=== PATIENT | female | born 1970 | race Caucasian/White ===

== ENCOUNTER 2020-12-28 10:07 | Inpatient (IN) | payer OTHER, SELFPAY ==
[2020-12-28] VITALS (7 sets, daily range): BP systolic 134–172; BP diastolic 82–102; PULSE 87–145; RESP 18–19; TEMP 36.9–37.1; O2SAT 96–99; BMI 25.8
--- NOTE | 2020-12-28 11:04 | ED_ITS ---
HPI - Alcohol General: Chief Complaint: Alcohol Stated Complaint: ALCOHOL WITHDRAWALS Time Seen by Provider: 12/28/20 10:08 History of Present Illness: HPI narrative: 50-year-old female who is a history of heavy drinking. She had stopped drinking for a couple of years about 2 to 12 weeks ago she restarted drinking up to what she describes as a gallon a day. Her last drink was yesterday she has been vomiting since then she denies any hematemesis or coffee-ground emesis. She does not have any known history of cirrhosis or esophageal varices. She denied any hematochezia or melena. She is wanting to stop drinking. Additionally she states she is suicidal plan to harm herself by taking an overdose of pills. She has had seizures in the past related to attempts to stop drinking. MD complaint: alcohol dependence Last drink: Days (ago) Chronic alcohol use: Yes Previous visits for alcohol intoxication: Yes Recent trauma: No Associated symptoms: Reports depression and suicidal ideation; Deny abdominal pain, diaphoresis, hematemesis, involuntary movements, melena, nausea, seizure-like activity, syncope or vomiting Treatments prior to arrival: none Review of Systems Const: Denies: diaphoresis ENMT: Denies: throat pain, ear or mastoid pain, nasal discharge or nasal congestion Card: Denies: syncope Resp: Denies: dyspnea, productive cough or non-productive cough GI: Denies: abdominal pain, nausea, vomiting, hematemesis or melena : Denies: flank pain, difficulty voiding, dysuria, urinary frequency or urinary urgency Skin/Breast: Denies: rash or pruritus Neuro: Denies: seizure-like activity or involuntary movements Psych: Reports: depression and suicidal ideation Physical Exam Const: COMMON NORMALS: no acute distress GENERAL APPEARANCE: cooperative and comfortable ORIENTATION/CONSCIOUSNESS: Yes awake, Yes oriented to person, Yes oriented to place and Yes oriented to time HENMT: COMMON NORMALS: normocephalic, atraumatic, hearing grossly normal bilat erally, external ears normal, EAC's normal, TM's normal bilaterally, Normal nasal mucous membranes and turbinates present, moist oral mucous membranes and oropharynx normal HEAD & SCALP: normocephalic and atraumatic NOSE: Normal nasal mucous membranes and turbinates present EXTERNAL EAR: Yes external ears normal EXTERNAL AUDITORY CANAL: EAC's normal TYMPANIC MEMBRANE: TM's normal bilaterally Eye: COMMON NORMALS: Equal, round and reactive pupils present, EOMs intact bilaterally, conjunctivae normal and no scleral icterus CONJUNCTIVA: Yes conjunctivae normal PUPIL: Yes Equal, round and reactive pupils present Neck/C-Spine: COMMON NORMALS: no JVD Resp: COMMON NORMALS: normal respiratory effort, No retractions, No use of accessory muscles and clear to auscultation bilaterally AUSCULTATION: clear to auscultation bilaterally Cardio: COMMON NORMALS: no JVD, regular rate, regular rhythm and No murmurs present (Cardio) RATE: regular rate RHYTHM: regular rhythm GI: COMMON NORMALS: Soft to palpation and No hepatosplenomegaly present AUSCULTATION: Yes normoactive bowel sounds PALPATION: Yes Soft to palpation, No Tenderness to palpation present (GI), No Guarding due to palpation present (GI) and Yes No hepatosplenomegaly present Extremity: COMMON NORMALS: normal to inspection, capillary refill normal, no clubbing, cyanosis or edema, no calf tenderness and no pedal edema Neuro: SENSORIUM/ORIENTATION: Yes oriented to person, Yes oriented to place an d Yes oriented to time Skin: COMMON NORMALS: no rashes or lesions noted GENERAL SKIN EXAM: no r ashes or lesions noted Course Vital Signs: Vital signs: Vital Signs Temperature 98.8 F 12/31/20 06:00 Pulse Rate 92 12/31/20 06:00 Respiratory Rate 20 H 12/31/20 06:00 Blood Pressure 138/98 12/31/20 06:00 Pulse Oximetry 96 12/31/20 06:00 MDM - Alcohol MDM Narrative: Medical decision making narrative: Patient started on a CIWA protocol discussed with Dr. Beyer will admit for suicidal ideation with [facility] protocol. Lab Data: Labs: Lab Results 12/28/20 12/28/20 12/28/20 Range/Units 10:30 10:30 10:30 WBC 6.1 (4.0-10.0) 10^3/ uL RBC 5.05 (4.1-5.3) 10^6/u L Hgb 16.8 H (11.5-15.3) g/dL Hct 48.6 H (37.0-47.0) % MCV 96.2 (81-99) fL MCH 33.3 (28.0-34.0) pg MCHC 34.6 (30.0-36.0) g/dL RDW 14.8 (12.1-15.1) % Plt Count 169 (130-400) 10^3/c mm MPV 11.1 H (7.4-10.4) fL Neut % (Auto) 64.0 % Lymph % (Auto) 30.4 % [place] % (Auto) 4.1 % Eos % (Auto) 0.2 % Baso % (Auto) 1.1 % Neut # (Auto) 3.90 (1.8-7.7) 10^3/u L Lymph # (Auto) 1.9 (0.8-4.8) 10^3/u L [place] # (Auto) 0.3 (0.2-0.9) 10^3/u L Eos # (Auto) 0.0 (0.0-0.8) 10^3/u L Baso # (Auto) 0.1 (0.0-0.1) 10^3/u L Nucleated RBC % (a uto) 0 % Nucleated RBCs # 0.0 /100WBC Sodium 139 (136-145) mmol/L Potassium 3.6 (3.5-5.1) mmol/L Chloride 94 L (98-107) mmol/L Carbon Dioxide 22 (22-29) mmol/L Anion Gap 26.6 H (5-19) BUN 9 (6-20) mg/dL Creatinine 0.7 (0.5-0.9) mg/dL GFR Calculation 88.9 L (90-130) mL/min Glucose 110 (65-115) mg/dL Calculated Osmolal ity 287 (285-295) mOsm/k g Calcium 8.7 (8.5-10.5) mg/dL Total Bilirubin 1.2 (0.15-1.2) mg/dL AST 88 H (0-32) U/L ALT 43 H (0-33) U/L Alkaline Phosphata se 92 (35-105) IU/L Total Protein 8.2 (6.6-8.7) g/dL Albumin 4.8 (3.5-5.2) g/dL Globulin 3.4 (1.3-4.6) g/dL Salicylates < 0.3 L (3-10) mg/dL Acetaminophen < 5.0 L (10-30) ug/mL Ethyl Alcohol 263 H (0-10) mg/dL Discharge Plan Discharge Patient Disposition: Admitted As Inpatient Admit Provider: Bob Beyer Clinical Impression: Suicidal ideation, Alcohol dependence with withdrawal, Depressive disorder Condition: Stable Coding Level of Care Code ED Airplane Refueler for Davina Grace
[2020-12-28 11:18] LABS: Basophils # 0.1 10^3/uL (0.0-0.1); Basophils % 1.1 %; Eosinophils % 0.2 %; Hematocrit 48.6 % (37.0-47.0); Hemoglobin 16.8 g/dL (11.5-15.3); Lymphocytes # 1.9 10^3/uL (0.8-4.8); Lymphocytes % 30.4 %; Mean Corpuscular HGB Conc 34.6 g/dL (30.0-36.0); Mean Corpuscular Hemoglobin 33.3 pg (28.0-34.0); Mean Corpuscular Volume 96.2 fL (81-99); Mean Platelet Volume 11.1 fL (7.4-10.4); Monocytes # 0.3 10^3/uL (0.2-0.9); Monocytes % 4.1 %; Nucleated Red Blood Cells % 0 %; Platelet Count 169 10^3/cmm (130-400); Red Blood Count 5.05 10^6/uL (4.1-5.3); Red Cell Distribution Width 14.8 % (12.1-15.1); White Blood Count 6.1 10^3/uL (4.0-10.0)
[2020-12-28] MEDS: ondansetron 2 mg/ML SDV 2 mL 4 MG IVP (11:22)
[2020-12-28] MEDS: multivitamin therapeutic Tablet 1 TAB PO (11:23)
[2020-12-28] MEDS: LORazepam 2 mg/mL INJ 1 mL IM ×3 (11:23→20:48)
[2020-12-28] MEDS: sodium chloride 0.9% 1,000 ML 999 ML IV (11:23)
[2020-12-28 11:30] LABS: Alanine Aminotransferase 43 U/L (0-33); Albumin Level 4.8 g/dL (3.5-5.2); Alkaline Phosphatase 92 IU/L (35-105); Anion Gap 26.6 (5-19); Aspartate Amino Transferase 88 U/L (0-32); Blood Urea Nitrogen 9 mg/dL (6-20); Calcium 8.7 mg/dL (8.5-10.5); Carbon Dioxide 22 mmol/L (22-29); Chloride 94 mmol/L (98-107); Globulin 3.4 g/dL (1.3-4.6); Glomerular Filtration Rate 88.9 mL/min (90-130); Glucose 110 mg/dL (65-115); Osmolality Calculated 287 mOsm/kg (285-295); Potassium 3.6 mmol/L (3.5-5.1); Sodium 139 mmol/L (136-145); Total Bilirubin 1.2 mg/dL (0.15-1.2); Total Protein 8.2 g/dL (6.6-8.7)
[2020-12-28 11:32] LABS: Acetaminophen < 5.0 ug/mL (10-30); Salicylate < 0.3 mg/dL (3-10)
[2020-12-28] MEDS: thiamine 100 mg Tablet PO (11:32)
--- NOTE | 2020-12-28 11:33 | PC.NURSE ---
Cooperative , meds given. Sitter at doorway
[2020-12-28] MEDS: folic acid 1 mg Tablet PO (11:49)
[2020-12-28] MEDS: ondansetron 4 MG Tablet PO (16:59)
[2020-12-28] MEDS: acetaminophen 325 mg Tablet 650 MG PO (16:59)
[2020-12-28] MEDS: LORazepam 2 mg Tablet PO (17:14)
--- NOTE | 2020-12-28 19:37 | PC.NURSE ---
The patient came to the nurse's station complaining of nausea and vomiting. Having dry heaves as she spoke. Very tremulous. PP 172/102. Pulse 145. Afebrile. CIWA 16. Will give Ativan 2 mg IM.
[2020-12-28 19:49] LABS: Alcohol Level 263 mg/dL (0-10)
[2020-12-28] MEDS: ondansetron 2 mg/ML SDV 2 mL 4 MG IM (20:41)
--- NOTE | 2020-12-28 20:46 | PC.NURSE ---
Reassessed CIWA. Patient still having nausea and vomiting and dry heaves. Zofran 4 mg IM given. CIWA=16. BP 165/96. Pulse 138. Afebrile. Ativan 2 mg IM given.
--- NOTE | 2020-12-28 21:22 | PC.NURSE ---
The patient appears to be sleeping at this time.
[2020-12-28] MEDS: trazodone 50 mg Tablet PO (21:51)
--- NOTE | 2020-12-28 21:52 | PC.NURSE ---
pt came to desk requesting trazodone for sleep. Trazodone 50mg po given.
[2020-12-29] MEDS: LORazepam 2 mg Tablet PO ×2 (04:08→20:13)
--- NOTE | 2020-12-29 04:12 | PC.NURSE ---
pt given Ativan 2mg po for CIWA score of 10. pt states she is not as nauseated as she had been earlier in the night.
[2020-12-29 06:00] VITALS: BP 121/80; PULSE 143; RESP 18; TEMP 37; O2SAT 94
[2020-12-29] MEDS: folic acid 1 mg Tablet PO (08:08)
[2020-12-29] MEDS: thiamine 100 mg Tablet PO (08:08)
[2020-12-29] MEDS: multivitamin therapeutic Tablet 1 TAB PO (08:08)
--- NOTE | 2020-12-29 10:56 | PM.NHP ---
Providers/Chief Complaint Admitting Physician: Bob Beyer DO Chief Complaint: ALCOHOL WITHDRAWALS HPI NPU History of Present Illness Gifty Patterson is a 50 year old female with a unclear past psychiatric history and longstanding history of alcohol dependence presented to the emergency department with alcohol withdrawal symptoms after reportedly increasing her alcohol take up to 1/2 gallon of vodka daily; patient states that she had tried to stop by moving out of the house that she shared with her boyfriend to live with someone who did not drink but was having episodes of emesis whenever she would drink alcohol to try and calm her nerves. Patient also reports that she was having increasing severity of depressive symptoms related to her alcohol use but also reports an unclear past history of depressive episodes with past psychiatric admissions at this facility over the past 15 years related to alcohol and depression. Patient states that she was recently having suicidal thoughts but denied any active intent or plan but reports having a past history of suicide attempt several years ago by overdose attempt but did not seek admission. Patient continues to report depressive symptoms but denies any suicidal ideation or thoughts about self-harm. Patient reports having withdrawal symptoms to include stomach cramping, muscle cramping, diaphoresis, difficulty sleeping and reports some visual hallucinations at night Review of Systems General: Reports: 10 or more systems reviewed and unremarkable except in HPI and below Meds NPU Home Medications Medication Instructions Recorded Confirmed Last Taken Type 1 tab PO DAILY 12/28/20 12/28/20 12/27/20 History Allergies Allergy/AdvReac Type Severity Reaction Status Date / Time morphine Allergy ALGY-Hives Verified 12/28/20 10:16 [facility] NPU Other Psychiatric History: Other Psychiatric History: Reports for psychiatric admission around 2004 with multiple subsequent hospitalizations related to alcohol and depression, states that she has not seen any outpatient mental health care for a few years Per above, reports past history of suicide attempt by overdose several years ago Mental Status Exam MSE Comments: Tired appearing, disheveled, wearing hospital scrubs, overweight, calm, cooperative, slow but steady gait, good eye contact Psychomotor activity is decreased, no agitation Speech is somewhat slow, fair articulation, spontaneous, not pressured I feel exhausted, constricted affect, not labile Alert and oriented to person, place, time, situation Memory and concentration appear to be intact per interview Intellectual functioning appears to be average based on vocabulary, interview Thought process, delayed but linear, no flight of ideas Thought content, no delusions, does not appear to be attending to any internal stimuli, no suicidal or homicidal ideation Insight and judgment appear to be intact Vitals/I&O/Wt Last Vital Signs Temp 98.6 F 12/29/20 06:00 Pulse 143 H 12/29/20 06:00 Resp 18 12/29/20 06:00 BP 121/80 12/29/20 06:00 Pulse Ox 94 12/29/20 06:00 12/28/20 12/29/20 12/29/20 22:59 06:59 14:59 Intake Total 1000 / 1000 Balance 1000 / 1000 Weight last 48 hrs Weight 90.718 kg Weight 77.111 kg Data NPU : 12/28/20 10:30 12/28/20 10:30 A&P Assessment and plan (1) Alcohol dependence with withdrawal: Status: Acute (2) Depressive disorder: Status: Acute (3) Suicidal ideation: Status: Acute Additional A&P Information Patient with longstanding history of alcohol dependence and unclear past psychiatric history with intermittent episodes of depression presents with alcohol withdrawal and suicidal ideation. VOLUNTARY ADMIT to inpatient psychiatry CONTINUE CIWA protocol Continue to monitor for withdrawal symptoms and will reevaluate for starting antidepressant after clearing acute withdrawal Coordinate with psychiatric social worker supervisor for post discharge care to include substance counseling and medication management Involuntary Hold Information 96 Hour Hold: 96 Hour Involuntary Admission: No Attestations NPU Medical Necessity Statement*: Require psychiatric hospitalization for medically managed withdrawal, observation for ongoing suicidal ideation or behaviors, coordination for safe discharge Anticipate hospital stay to exceed 2 midnights Time Spent in Patient Care: Greater than 35 minutes (>than 50% of time spent in counselling and/or direct pt care on unit). Coding Level of Care Code Acute [employer] Supervisor for Davina Grace Diagnoses Alcohol dependence with withdrawal F10.239 Depressive disorder F32.9 Suicidal ideation R45.851
[2020-12-29 13:39] VITALS: BP 136/79; PULSE 106; RESP 19; TEMP 37.2; O2SAT 94
[2020-12-29] MEDS: nicotine 2 mg Gum BUCCAL ×3 (14:16→19:19)
[2020-12-29] MEDS: ondansetron 4 MG Tablet PO (14:34)
[2020-12-29 19:53] VITALS: BP 139/96; PULSE 121; RESP 17; TEMP 36.9; O2SAT 94
[2020-12-29] MEDS: hyDROXYzine 25 mg Capsule 50 MG PO (19:54)
--- NOTE | 2020-12-29 19:55 | PC.NURSE ---
pt to desk complaining of anxiety and itching, Vistaril 50mg po given.
--- NOTE | 2020-12-29 20:07 | PC.NURSE ---
The patient had nausea and vomiting while we were talking. She has visible tremor. Complaining of prickly sensations in her fingers and around her mouth. Moderate anxiety. T 98, P 121, R 17, BP 139/96. CIWA=16. Will give Ativan 2 mg PO.
[2020-12-29] MEDS: trazodone 50 mg Tablet PO (21:27)
--- NOTE | 2020-12-29 21:30 | PC.NURSE ---
pt requested sleep med. trazodone 50mg given.
--- NOTE | 2020-12-29 22:00 | PC.NURSE ---
The patient reports relief of nausea, anxiety, tactile symptoms.
--- NOTE | 2020-12-29 22:10 | PC.NURSE ---
pt still awake, states getting sleepy.
[2020-12-30 06:00] VITALS: BP 113/77; PULSE 82; RESP 16; TEMP 36.3; O2SAT 93
[2020-12-30] MEDS: multivitamin therapeutic Tablet 1 TAB PO (07:41)
[2020-12-30] MEDS: nicotine 2 mg Gum BUCCAL ×5 (07:41→20:56)
[2020-12-30] MEDS: thiamine 100 mg Tablet PO (07:42)
[2020-12-30] MEDS: folic acid 1 mg Tablet PO (07:42)
[2020-12-30] MEDS: LORazepam 2 mg Tablet PO (11:55)
--- NOTE | 2020-12-30 11:59 | PC.NURSE ---
CIWA SCORE 10--ATIVAN 2 MG GIVEN PO PER PROTOCOL
[2020-12-30 13:56] VITALS: BP 106/69; PULSE 104; RESP 18; TEMP 36.7; O2SAT 96
--- NOTE | 2020-12-30 14:18 | PM.NPN ---
Subjective NPU Subjective: Interval history: Patient reports significant improvement in her withdrawal symptoms, denies any interval emesis, states that she has been able to hold down food and that she slept better last evening Reports intermittent depressive symptoms with regards to her situation but denies any sustained mood symptoms, denies any interval suicidal ideation or thoughts about self-harm Patient expressed interest in taking naltrexone to reduce cravings for alcohol Mental Status Exam MSE Comments: Lying in bed, calm, cooperative, interactive, appropriately groomed and dressed in hospital scrubs, good eye contact Psychomotor activity is neither increased nor decreased, no agitation Speech is normal rate and volume, spontaneous, not pressured I feel much better, full range, not labile Alert and oriented to person, place, time, situation Memory and concentration appear to be intact per interview Thought process, linear, no flight of ideas, no looseness of associations Thought content, no delusions, no hallucinations, no suicidal or homicidal ideation Insight and judgment appear to be intact Vitals/I&O/Wt Last Vital Signs Temp 98.0 F 12/30/20 13:56 Pulse 104 H 12/30/20 13:56 Resp 18 12/30/20 13:56 BP 106/69 12/30/20 13:56 Pulse Ox 96 12/30/20 13:56 Weight last 48 hrs Weight 90.718 kg Data NPU : 12/28/20 10:30 12/28/20 10:30 A&P Assessment and plan (1) Suicidal ideation: Status: Acute (2) Alcohol dependence with withdrawal: Status: Acute Qualifiers: Complication of substance-induced condition: uncomplicated Qualified Code(s): F10.230 - Alcohol dependence with withdrawal, uncomplicated (3) Depressive disorder: Status: Acute Additional A&P Information Patient reports significant improvement alcohol withdrawal symptoms, continues to report intermittent depressive symptoms with no interval suicidal ideation, expresses interest in starting medication to reduce cravings START naltrexone 50 mg daily targeting alcohol cravings CONTINUE [facility] protocol Involuntary Hold Information 96 Hour Hold: 96 Hour Involuntary Admission: No Attestations NPU Medical Necessity Statement*: Continues require psychiatric hospitalization for medically managed withdrawal from alcohol as well as observation for return of any suicidal ideation or behaviors and coordination for safe discharge Coding Level of Care Code Acute Reception Interviewer for [facility] Diagnoses Suicidal ideation R45.851 Alcohol dependence with withdrawal F10.230 Complication of substance-induced condition: uncomplicated Depressive disorder F32.9
[2020-12-30] MEDS: naltrexone hcl 50 mg Tablet PO (14:51)
[2020-12-30] MEDS: acetaminophen 325 mg Tablet 650 MG PO (18:42)
[2020-12-30 19:54] VITALS: BP 125/83; PULSE 125; RESP 18; TEMP 36.7; O2SAT 97
[2020-12-30] MEDS: OLANZapine 5 mg ODT PO (20:58)
--- NOTE | 2020-12-30 22:12 | PC.NURSE ---
pt in room awake, resting quietly
[2020-12-30] MEDS: trazodone 50 mg Tablet PO (22:33)
[2020-12-30] MEDS: hyDROXYzine 25 mg Capsule 50 MG PO (23:34)
--- NOTE | 2020-12-30 23:37 | PC.NURSE ---
PT TO DESK COMPLAINING OF STILL NOT ABLE TO STOP MY THOUGHTS . VISTARIL 50 MG PO GIVEN.
[2020-12-31 06:00] VITALS: BP 138/98; PULSE 92; RESP 20; TEMP 37.1; O2SAT 96
[2020-12-31] MEDS: nicotine 2 mg Gum BUCCAL ×2 (06:44→09:31)
[2020-12-31] MEDS: naltrexone hcl 50 mg Tablet PO (08:14)
[2020-12-31] MEDS: folic acid 1 mg Tablet PO (08:14)
[2020-12-31] MEDS: thiamine 100 mg Tablet PO (08:14)
[2020-12-31] MEDS: multivitamin therapeutic Tablet 1 TAB PO (08:14)
--- NOTE | 2020-12-31 09:36 | P.DS_ITS ---
Diagnoses at Discharge Discharge Diagnosis (1) Suicidal ideation: Status: Acute (2) Alcohol dependence with withdrawal: Status: Acute (3) Depressive disorder: Status: Acute Reason for Visit Reason for Visit: ALCOHOL WITHDRAWALS Hospital Course Hospital Course 50 year old female with a unclear past psychiatric history and longstanding history of alcohol dependence presented to the emergency department with alcohol withdrawal symptoms after reportedly increasing her alcohol take up to 1/2 gallon of vodka daily; patient states that she had tried to stop by moving out of the house that she shared with her boyfriend to live with someone who did not drink but was having episodes of emesis whenever she would drink alcohol to try and calm her nerves. She continued to report significant withdrawal symptoms and had been placed on CIWA protocol. Patient continued to have intermittent episodes of emesis for the first couple days with significant improvement in ability to tolerate fluids and food and was no longer reporting stomach spasms, tremors or nausea. Patient reported significant improvement of her depressive symptoms and denied any suicidal ideation which she states was tied to her frustration with her inability to quit drinking and her relationship with her alcoholic boyfriend. Patient expressed an interest in starting naltrexone to reduce cravings for alcohol which she tolerated well with no reports of any medication side effects. Patient was not suicidal and did not appear to pose an imminent threat of harm to self or others. Low to moderate risk of harm to self given no current suicidal ideation as well as desire to abstain from use of alcohol and seek treatment although her risk may be elevated if she continues to use alcohol or any substances leading to unexpected, impulsive behavior. Risk mitigation included psychiatric hospitalization for medically managed withdrawal, medication stabilization, coordination for safe discharge as well as recommendation to abstain from the use of alcohol and substances as well as the need for compliance with her medication, medication management and substance counseling/treatment in order to further mitigate her risk of harm to self and others. Involuntary Hold Information 96 Hour Hold: 96 Hour Involuntary Admission: No Mental Status Exam MSE Comments: Sitting up on her bed, polite, interactive, appropriately groomed and dressed in hospital scrubs, good eye contact Psychomotor activity is neither increased nor decreased, no agitation Speech is normal rate and volume, spontaneous, not pressured I feel good, full range, not labile Alert and oriented to person, place, time, situation Memory and concentration appear to be intact per interview Thought process, linear, no flight of ideas, no looseness of associations Thought content, no delusions, no hallucinations, no suicidal or homicidal ideation Insight and judgment appear to be intact Discharge Data Data Completed and Pending: Pending at discharge Category Date Time Status Urinalysis Stat Lab 12/28/20 11:58 Ordered Vitals: Last Vital Signs Temp 98.8 F 12/31/20 06:00 Pulse 92 12/31/20 06:00 Resp 20 H 12/31/20 06:00 BP 138/98 12/31/20 06:00 Pulse Ox 96 12/31/20 06:00 Discharge Plan Discharge Patient Disposition: Home Condition: Stable Prescriptions: New thiamine mononitrate (vit B1) [Vitamin B-1 (mononitrate)] 100 mg Tablet 100 mg PO DAILY Qty: 30 RF: 0 naltrexone 50 mg Tablet 50 mg PO DAILY Qty: 30 RF: 0 Continued 1 tab PO DAILY RF: 0 Discharge Orders: Discharge Order (Routine); Ordered 12/31/20 Ordered By: Bob Beyer Discharge Diet: Regular Discharge Activity: Resume usual activity Patient Instructions: Opioid Safety Discharge Attestations NPU Time Spent in Discharge Care*: greater than 30 min Status at Discharge: Cognitive status at discharge: cognitively intact , Behavioral status at discharge: cooperative , Functional status at discharge: independent ambulation Overall status at discharge: patient is back to baseline Coding Level of Care Code Acute Lead Retail Sales Associate for Davina Grace Diagnoses Suicidal ideation R45.851 Alcohol dependence with withdrawal F10.239 Depressive disorder F32.9
[2020-12-31 10:02] VITALS: BP 138/98; PULSE 92; RESP 20; TEMP 37.1; O2SAT 96
== END 2020-12-31 10:21 | disposition home or self-care (01) | DRG 897 ==
LOC: ER 12:13 → NP 12:19
PROVIDERS: Admitting Provider Psychiatry & Neurology Psychiatry; Emergency Provider Family Medicine; Visit Provider Psychiatry & Neurology Psychiatry
DX: F10.239 Alcohol dependence with withdrawal, unspecified (principal); R45.851 Suicidal ideations; F32.9 Major depressive disorder, single episode, unspecified
CPT/HCPCS: 80053; 80307; 85025; 96361; 96372; 96374; 99285; J2060; J2405; J3411; J7030; Q0162

== ENCOUNTER 2021-10-12 16:11 | Inpatient (IN) | payer OTHER, SELFPAY ==
[2021-10-12 16:26] VITALS: BP 176/83; PULSE 76; RESP 19; TEMP 37.2; O2SAT 93; BMI 33.3
--- NOTE | 2021-10-12 16:45 | W.ED.PSYCHS ---
Documented by User: NESSA Pedersen 10/12/21 16:47 HPI - Psych General: Chief Complaint: Psychiatric Symptoms Stated Complaint: psych, SI Time Seen by Provider: 10/12/21 16:39 History of Present Illness: HPI Narrative: Patient presents here today with thoughts of suicide. Patient says he does have a difficult time since her boyfriend killed herself in her living room in January. Says she had a lot of financial difficulties having remodeled the house also. Also mother is moved in and that is created some problems. Patient has drank heavily over the years. Was sober for 2 years and started drinking again with her boyfriend and then drinking worse once he committed suicide. Patient denies illicit drug use yet that her boyfriend did use methamphetamines heavily. Patient says she is reach out for help she feels very depressed does not want to go on living and she has a plan to take pills to end her life. She has drank Southern comfort today and 12 pack of beer complaint: suicidal ideation and feels depressed Onset (ago): month(s) Duration: constant and getting worse History of same: Yes Relieving factors: none Context: recent alcohol abuse Associated psychiatric symptoms: depression and suicidal ideation Associated symptoms: Reports no associated symptoms and depression Treatments prior to arrival: none If self harm: admits thoughts of self harm and has plan Review of Systems Const: Denies: fever(s), chills or body aches Eyes: Denies: change in vision or blurry vision ENMT: Denies: throat pain or nasal congestion Card: Denies: chest pain or dyspnea on exertion Resp: Denies: dyspnea, productive cough or non-productive cough GI: Denies: abdominal pain, nausea or vomiting Musc: Denies: extremity pain Skin/Breast: Denies: rash Neuro: Denies: headache(s) Psych: Reports: depression, sleeping less, hopelessness and loss of interest; Denies: anxiety Candelario/Lymph: Denies: easy bruising Physical Exam Const: COMMON NORMALS: no acute distress, average body habitus and patient oriented x3 HENMT: COMMON NORMALS: normocephalic HEAD & SCALP: normal to inspection and normocephalic FACE & SINUS: normal facial exam Eye: COMMON NORMALS: conjunctivae normal GENERAL EYE: appearance normal, both eyes and all related structures CONJUNCTIVA: Yes conjunctivae normal Neck/C-Spine: COMMON NORMALS: no JVD Chest: COMMONS NORMALS: normal inspection of the chest Resp: COMMON NORMALS: normal respiratory effort and clear to auscultation bilaterally AUSCULTATION: clear to auscultation bilaterally Cardio: COMMON NORMALS: no JVD, regular rate and regular rhythm RATE: regular rate RHYTHM: regular rhythm GI: COMMON NORMALS: Normal to inspection, nondistended, normoactive bowel sounds present Extremity: COMMON NORMALS: normal to inspection and full ROM Neuro: COMMON NORMALS: patient oriented x3 Psych: COMMON NORMALS: mental status grossly normal, Normal thought process present and speech normal APPEARANCE: Yes grossly normal ATTITUDE: Yes calm and Yes engaged ACTIVITY/MOTOR BEHAVIOR: Yes appropriate eye contact SPEECH: Yes normal speech MOOD & AFFECT: Yes depressed mood THOUGHT PROCESS: Normal thought process present THOUGHT CONTENT: Yes Normal thought content present ATTENTION/CONCENTRATION: Yes attention grossly intact MEMORY/COGNITION: Yes memory grossly intact JUDGEMENT: Good judgement present (Psych) Course Vital Signs: Vital signs: Vital Signs Temperature 97.9 F 10/12/21 20:35 Pulse Rate 79 10/12/21 20:35 Respiratory Rate 17 10/12/21 20:35 Blood Pressure 120/88 10/12/21 20:35 Pulse Oximetry 94 10/12/21 20:35 MDM - Psych Lab Data: Labs: Lab Results 10/12/21 10/12/21 10/12/21 17:02 17:02 17:09 WBC 6.6 10^3/uL 10^3/ uL (4.0-10.0) RBC 4.28 10^6/uL 10^6 /uL (4.1-5.3) Hgb 15.1 g/dL g/dL (11.5-15.3) Hct 43.0 % % (37.0-47.0) MCV 100.5 fl H fl (81-99) MCH 35.3 pg H pg (28.0-34.0) MCHC 35.1 g/dL g/dL (30.0-36.0) RDW 13.5 % % (12.1-15.1) Plt Count 91 10^3/cmm L 10^ 3/cmm (130-400) MPV 11.7 fL H fL (7.4-10.4) Neut % (Auto) 51.4 % % Lymph % (Auto) 34.4 % % [place] % (Auto) 10.9 % % Eos % (Auto) 2.0 % % Baso % (Auto) 1.1 % % Neut # (Auto) 3.41 10^3/uL 10^3 /uL (1.8-7.7) Lymph # (Auto) 2.3 10^3/uL 10^3/ uL (0.8-4.8) [place] # (Auto) 0.7 10^3/uL 10^3/ uL (0.2-0.9) Eos # (Auto) 0.1 10^3/uL 10^3/ uL (0.0-0.8) Baso # (Auto) 0.1 10^3/uL 10^3/ uL (0.0-0.1) Nucleated RBC % (a uto) 0 % % Nucleated RBCs # 0.0 /100WBC /100W BC Sodium 134 mmol/L L mmol /L (136-145) Potassium 3.7 mmol/L mmol/L (3.5-5.1) Chloride 97 mmol/L L mmol/ L (98-107) Carbon Dioxide 22 mmol/L mmol/L (22-29) Anion Gap 18.7 (5-19) BUN 7 mg/dL mg/dL (6-20) Creatinine 0.5 mg/dL mg/dL (0.5-0.9) GFR Calculation 130.6 mL/min H mL /min (90-130) Glucose 99 mg/dL mg/dL (65-115) Calculated Osmolal ity 276 mOsm/kg L mOs m/kg (285-295) Calcium 8.3 mg/dL L mg/dL (8.5-10.5) Total Bilirubin 0.7 mg/dL mg/dL (0.15-1.2) AST 106 U/L H U/L (0-32) ALT 38 U/L H U/L (0-33) Alkaline Phosphata se 138 IU/L H IU/L (35-105) Total Protein 6.8 g/dL g/dL (6.6-8.7) Albumin 3.9 g/dL g/dL (3.5-5.2) Globulin 2.9 g/dL g/dL (1.3-4.6) Urine Color Yellow (Yellow) Urine Appearance Clear (CLEAR) Urine pH 5 (5-7) Ur Specific Gravit y 1.005 (1.005-1.030) Urine Protein Neg (Negative) Urine Glucose (UA) Norm (Normal) Urine Ketones Negative (Negative) Urine Blood Neg (Negative) Urine Nitrate Negative (Negative) Urine Bilirubin Neg (Negative) Urine Urobilinogen 1 mg/dL H mg/dL (Negative) Ur Leukocyte Tasha ase Negative (Negative) Salicylates < 0.3 mg/dL L mg/ dL (3-10) Urine Opiates Scre en Acetaminophen < 5.0 ug/mL L ug/ mL (10-30) Ur Barbiturates Sc reen Ur Phencyclidine S crn Ur Amphetamines Sc reen U Benzodiazepines Scrn Urine Cocaine Scre en U Marijuana (THC) Screen Ethyl Alcohol 230 mg/dL H mg/dL (0-10) 10/12/21 17:09 WBC RBC Hgb Hct MCV MCH MCHC RDW Plt Count MPV Neut % (Auto) Lymph % (Auto) [place] % (Auto) Eos % (Auto) Baso % (Auto) Neut # (Auto) Lymph # (Auto) [place] # (Auto) Eos # (Auto) Baso # (Auto) Nucleated RBC % (a uto) Nucleated RBCs # Sodium Potassium Chloride Carbon Dioxide Anion Gap BUN Creatinine GFR Calculation Glucose Calculated Osmolal ity Calcium Total Bilirubin AST ALT Alkaline Phosphata se Total Protein Albumin Globulin Urine Color Urine Appearance Urine pH Ur Specific Gravit y Urine Protein Urine Glucose (UA) Urine Ketones Urine Blood Urine Nitrate Urine Bilirubin Urine Urobilinogen Ur Leukocyte Tasha ase Salicylates Urine Opiates Scre en Negative ng/mL ng /mL (Negative) Acetaminophen Ur Barbiturates Sc reen Negative ng/mL ng /mL (Negative) Ur Phencyclidine S crn Negative ng/mL ng /mL (Negative) Ur Amphetamines Sc reen Negative ng/mL ng /mL (Negative) U Benzodiazepines Scrn Positive ng/mL H ng/mL (Negative) Urine Cocaine Scre en Negative ng/mL ng /mL (Negative) U Marijuana (THC) Screen Negative ng/mL ng /mL (Negative) Ethyl Alcohol Discharge Plan Discharge Patient Disposition: Admitted As Inpatient Admit Provider: Judd Underwood Clinical Impression: Suicidal ideation Condition: Stable Sign Out Sign Out Data: Patient Sign Out occurred on 10/12/21 at 17:04. Patient's care was discussed, and care was transferred from to TOMI Alvarez. Coding Level of Care Code ED Post Form Remover for Chg Fwd Exam Comprehensive Documented by User: TOMI Alvarez 10/13/21 00:02 HPI - Psych General: Chief Complaint: Psychiatric Symptoms Stated Complaint: psych, SI Time Seen by Provider: 10/12/21 16:39 Course Consultations: Consultation #1: I contacted Dr. Witt the television cable installer psych DrQian And told him about patient case. He agreed to have patient admitted into the NPU. Time: 18:50 Vital Signs: Vital signs: Vital Signs Temperature 97.9 F 10/12/21 20:35 Pulse Rate 79 10/12/21 20:35 Respiratory Rate 17 10/12/21 20:35 Blood Pressure 120/88 10/12/21 20:35 Pulse Oximetry 94 10/12/21 20:35 MDM - Psych MDM Narrative: Medical decision making narrative: Patient is a 51-year-old female comes to the ED with SI. Patient also admits to alcohol abuse and has been drinking today as well. Patient states she has a plan to overdose on pills. Patient appears in no acute distress or pain and her vitals are stable. Prescreening labs performed and urine drug screen was positive for benzodiazepine and alcohol level 230. I contacted Dr. Witt and told about patient case. He agreed to have patient admitted to the NPU. Dr. Julio placed the admitting orders. Lab Data: Attestation: I reviewed the patient's lab results. Labs: Lab Results 10/12/21 10/12/21 10/12/21 17:02 17:02 17:09 WBC 6.6 10^3/uL 10^3/ uL (4.0-10.0) RBC 4.28 10^6/uL 10^6 /uL (4.1-5.3) Hgb 15.1 g/dL g/dL (11.5-15.3) Hct 43.0 % % (37.0-47.0) MCV 100.5 fl H fl (81-99) MCH 35.3 pg H pg (28.0-34.0) MCHC 35.1 g/dL g/dL (30.0-36.0) RDW 13.5 % % (12.1-15.1) Plt Count 91 10^3/cmm L 10^ 3/cmm (130-400) MPV 11.7 fL H fL (7.4-10.4) Neut % (Auto) 51.4 % % Lymph % (Auto) 34.4 % % [place] % (Auto) 10.9 % % Eos % (Auto) 2.0 % % Baso % (Auto) 1.1 % % Neut # (Auto) 3.41 10^3/uL 10^3 /uL (1.8-7.7) Lymph # (Auto) 2.3 10^3/uL 10^3/ uL (0.8-4.8) [place] # (Auto) 0.7 10^3/uL 10^3/ uL (0.2-0.9) Eos # (Auto) 0.1 10^3/uL 10^3/ uL (0.0-0.8) Baso # (Auto) 0.1 10^3/uL 10^3/ uL (0.0-0.1) Nucleated RBC % (a uto) 0 % % Nucleated RBCs # 0.0 /100WBC /100W BC Sodium 134 mmol/L L mmol /L (136-145) Potassium 3.7 mmol/L mmol/L (3.5-5.1) Chloride 97 mmol/L L mmol/ L (98-107) Carbon Dioxide 22 mmol/L mmol/L (22-29) Anion Gap 18.7 (5-19) BUN 7 mg/dL mg/dL (6-20) Creatinine 0.5 mg/dL mg/dL (0.5-0.9) GFR Calculation 130.6 mL/min H mL /min (90-130) Glucose 99 mg/dL mg/dL (65-115) Calculated Osmolal ity 276 mOsm/kg L mOs m/kg (285-295) Calcium 8.3 mg/dL L mg/dL (8.5-10.5) Total Bilirubin 0.7 mg/dL mg/dL (0.15-1.2) AST 106 U/L H U/L (0-32) ALT 38 U/L H U/L (0-33) Alkaline Phosphata se 138 IU/L H IU/L (35-105) Total Protein 6.8 g/dL g/dL (6.6-8.7) Albumin 3.9 g/dL g/dL (3.5-5.2) Globulin 2.9 g/dL g/dL (1.3-4.6) Urine Color Yellow (Yellow) Urine Appearance Clear (CLEAR) Urine pH 5 (5-7) Ur Specific Gravit y 1.005 (1.005-1.030) Urine Protein Neg (Negative) Urine Glucose (UA) Norm (Normal) Urine Ketones Negative (Negative) Urine Blood Neg (Negative) Urine Nitrate Negative (Negative) Urine Bilirubin Neg (Negative) Urine Urobilinogen 1 mg/dL H mg/dL (Negative) Ur Leukocyte Tasha ase Negative (Negative) Salicylates < 0.3 mg/dL L mg/ dL (3-10) Urine Opiates Scre en Acetaminophen < 5.0 ug/mL L ug/ mL (10-30) Ur Barbiturates Sc reen Ur Phencyclidine S crn Ur Amphetamines Sc reen U Benzodiazepines Scrn Urine Cocaine Scre en U Marijuana (THC) Screen Ethyl Alcohol 230 mg/dL H mg/dL (0-10) 10/12/21 17:09 WBC RBC Hgb Hct MCV MCH MCHC RDW Plt Count MPV Neut % (Auto) Lymph % (Auto) [place] % (Auto) Eos % (Auto) Baso % (Auto) Neut # (Auto) Lymph # (Auto) [place] # (Auto) Eos # (Auto) Baso # (Auto) Nucleated RBC % (a uto) Nucleated RBCs # Sodium Potassium Chloride Carbon Dioxide Anion Gap BUN Creatinine GFR Calculation Glucose Calculated Osmolal ity Calcium Total Bilirubin AST ALT Alkaline Phosphata se Total Protein Albumin Globulin Urine Color Urine Appearance Urine pH Ur Specific Gravit y Urine Protein Urine Glucose (UA) Urine Ketones Urine Blood Urine Nitrate Urine Bilirubin Urine Urobilinogen Ur Leukocyte Tasha ase Salicylates Urine Opiates Scre en Negative ng/mL ng /mL (Negative) Acetaminophen Ur Barbiturates Sc reen Negative ng/mL ng /mL (Negative) Ur Phencyclidine S crn Negative ng/mL ng /mL (Negative) Ur Amphetamines Sc reen Negative ng/mL ng /mL (Negative) U Benzodiazepines Scrn Positive ng/mL H ng/mL (Negative) Urine Cocaine Scre en Negative ng/mL ng /mL (Negative) U Marijuana (THC) Screen Negative ng/mL ng /mL (Negative) Ethyl Alcohol Discharge Plan Discharge Patient Disposition: Admitted As Inpatient Admit Provider: Judd Underwood Clinical Impression: Suicidal ideation Condition: Stable Sign Out Sign Out Data: Patient Sign Out occurred on 10/12/21 at 17:04. Patient's care was discussed, and care was transferred from to TOMI Alvarez. Coding Level of Care Code ED Post Form Remover for Chg Fwd Exam Comprehensive Documented by User: Brett Julio DO 10/13/21 01:24 HPI - Psych General: Chief Complaint: Psychiatric Symptoms Stated Complaint: psych, SI Time Seen by Provider: 10/12/21 16:39 Course Vital Signs: Vital signs: Vital Signs Temperature 97.9 F 10/12/21 20:35 Pulse Rate 79 10/12/21 20:35 Respiratory Rate 17 10/12/21 20:35 Blood Pressure 120/88 10/12/21 20:35 Pulse Oximetry 94 10/12/21 20:35 MDM - Psych MDM Narrative: Medical decision making narrative: This patient was originally seen by Mr. Renuka PA-C. I agree with his history, evaluation, and treatment. Lab Data: Labs: Lab Results 10/12/21 10/12/21 10/12/21 17:02 17:02 17:09 WBC 6.6 10^3/uL 10^3/ uL (4.0-10.0) RBC 4.28 10^6/uL 10^6 /uL (4.1-5.3) Hgb 15.1 g/dL g/dL (11.5-15.3) Hct 43.0 % % (37.0-47.0) MCV 100.5 fl H fl (81-99) MCH 35.3 pg H pg (28.0-34.0) MCHC 35.1 g/dL g/dL (30.0-36.0) RDW 13.5 % % (12.1-15.1) Plt Count 91 10^3/cmm L 10^ 3/cmm (130-400) MPV 11.7 fL H fL (7.4-10.4) Neut % (Auto) 51.4 % % Lymph % (Auto) 34.4 % % [place] % (Auto) 10.9 % % Eos % (Auto) 2.0 % % Baso % (Auto) 1.1 % % Neut # (Auto) 3.41 10^3/uL 10^3 /uL (1.8-7.7) Lymph # (Auto) 2.3 10^3/uL 10^3/ uL (0.8-4.8) [place] # (Auto) 0.7 10^3/uL 10^3/ uL (0.2-0.9) Eos # (Auto) 0.1 10^3/uL 10^3/ uL (0.0-0.8) Baso # (Auto) 0.1 10^3/uL 10^3/ uL (0.0-0.1) Nucleated RBC % (a uto) 0 % % Nucleated RBCs # 0.0 /100WBC /100W BC Sodium 134 mmol/L L mmol /L (136-145) Potassium 3.7 mmol/L mmol/L (3.5-5.1) Chloride 97 mmol/L L mmol/ L (98-107) Carbon Dioxide 22 mmol/L mmol/L (22-29) Anion Gap 18.7 (5-19) BUN 7 mg/dL mg/dL (6-20) Creatinine 0.5 mg/dL mg/dL (0.5-0.9) GFR Calculation 130.6 mL/min H mL /min (90-130) Glucose 99 mg/dL mg/dL (65-115) Calculated Osmolal ity 276 mOsm/kg L mOs m/kg (285-295) Calcium 8.3 mg/dL L mg/dL (8.5-10.5) Total Bilirubin 0.7 mg/dL mg/dL (0.15-1.2) AST 106 U/L H U/L (0-32) ALT 38 U/L H U/L (0-33) Alkaline Phosphata se 138 IU/L H IU/L (35-105) Total Protein 6.8 g/dL g/dL (6.6-8.7) Albumin 3.9 g/dL g/dL (3.5-5.2) Globulin 2.9 g/dL g/dL (1.3-4.6) Urine Color Yellow (Yellow) Urine Appearance Clear (CLEAR) Urine pH 5 (5-7) Ur Specific Gravit y 1.005 (1.005-1.030) Urine Protein Neg (Negative) Urine Glucose (UA) Norm (Normal) Urine Ketones Negative (Negative) Urine Blood Neg (Negative) Urine Nitrate Negative (Negative) Urine Bilirubin Neg (Negative) Urine Urobilinogen 1 mg/dL H mg/dL (Negative) Ur Leukocyte Tasha ase Negative (Negative) Salicylates < 0.3 mg/dL L mg/ dL (3-10) Urine Opiates Scre en Acetaminophen < 5.0 ug/mL L ug/ mL (10-30) Ur Barbiturates Sc reen Ur Phencyclidine S crn Ur Amphetamines Sc reen U Benzodiazepines Scrn Urine Cocaine Scre en U Marijuana (THC) Screen Ethyl Alcohol 230 mg/dL H mg/dL (0-10) 10/12/21 17:09 WBC RBC Hgb Hct MCV MCH MCHC RDW Plt Count MPV Neut % (Auto) Lymph % (Auto) [place] % (Auto) Eos % (Auto) Baso % (Auto) Neut # (Auto) Lymph # (Auto) [place] # (Auto) Eos # (Auto) Baso # (Auto) Nucleated RBC % (a uto) Nucleated RBCs # Sodium Potassium Chloride Carbon Dioxide Anion Gap BUN Creatinine GFR Calculation Glucose Calculated Osmolal ity Calcium Total Bilirubin AST ALT Alkaline Phosphata se Total Protein Albumin Globulin Urine Color Urine Appearance Urine pH Ur Specific Gravit y Urine Protein Urine Glucose (UA) Urine Ketones Urine Blood Urine Nitrate Urine Bilirubin Urine Urobilinogen Ur Leukocyte Tasha ase Salicylates Urine Opiates Scre en Negative ng/mL ng /mL (Negative) Acetaminophen Ur Barbiturates Sc reen Negative ng/mL ng /mL (Negative) Ur Phencyclidine S crn Negative ng/mL ng /mL (Negative) Ur Amphetamines Sc reen Negative ng/mL ng /mL (Negative) U Benzodiazepines Scrn Positive ng/mL H ng/mL (Negative) Urine Cocaine Scre en Negative ng/mL ng /mL (Negative) U Marijuana (THC) Screen Negative ng/mL ng /mL (Negative) Ethyl Alcohol Discharge Plan Discharge Patient Disposition: Admitted As Inpatient Admit Provider: Judd Underwood Clinical Impression: Suicidal ideation Condition: Stable Sign Out Sign Out Data: Patient Sign Out occurred on 10/12/21 at 17:04. Patient's care was discussed, and care was transferred from to TOMI Alvarez. Coding Level of Care Code ED Post Form Remover for Davina Grace Exam Comprehensive
[2021-10-12 17:16] LABS: Basophils # 0.1 10^3/uL (0.0-0.1); Basophils % 1.1 %; Eosinophils # 0.1 10^3/uL (0.0-0.8); Hemoglobin 15.1 g/dL (11.5-15.3); Lymphocytes # 2.3 10^3/uL (0.8-4.8); Lymphocytes % 34.4 %; Mean Corpuscular HGB Conc 35.1 g/dL (30.0-36.0); Mean Corpuscular Hemoglobin 35.3 pg (28.0-34.0); Mean Corpuscular Volume 100.5 fl (81-99); Mean Platelet Volume 11.7 fL (7.4-10.4); Monocytes # 0.7 10^3/uL (0.2-0.9); Monocytes % 10.9 %; Neutrophils # 3.41 10^3/uL (1.8-7.7); Neutrophils % 51.4 %; Nucleated Red Blood Cells % 0 %; Platelet Count 91 10^3/cmm (130-400); Red Blood Count 4.28 10^6/uL (4.1-5.3); Red Cell Distribution Width 13.5 % (12.1-15.1); White Blood Count 6.6 10^3/uL (4.0-10.0)
[2021-10-12 17:32] LABS: Alanine Aminotransferase 38 U/L (0-33); Albumin Level 3.9 g/dL (3.5-5.2); Alcohol Level 230 mg/dL (0-10); Alkaline Phosphatase 138 IU/L (35-105); Anion Gap 18.7 (5-19); Aspartate Amino Transferase 106 U/L (0-32); Blood Urea Nitrogen 7 mg/dL (6-20); Calcium 8.3 mg/dL (8.5-10.5); Carbon Dioxide 22 mmol/L (22-29); Chloride 97 mmol/L (98-107); Globulin 2.9 g/dL (1.3-4.6); Glomerular Filtration Rate 130.6 mL/min (90-130); Glucose 99 mg/dL (65-115); Osmolality Calculated 276 mOsm/kg (285-295); Potassium 3.7 mmol/L (3.5-5.1); Sodium 134 mmol/L (136-145); Total Bilirubin 0.7 mg/dL (0.15-1.2); Total Protein 6.8 g/dL (6.6-8.7)
[2021-10-12 17:36] LABS: Acetaminophen < 5.0 ug/mL (10-30); Salicylate < 0.3 mg/dL (3-10)
[2021-10-12 17:47] LABS: Add Urine Microscopic? NO; Charge for UA Resulting for Rev
[2021-10-12 17:51] LABS: Bilirubin Urine Neg (Negative); Blood Urine Neg (Negative); Glucose Urine UA Norm (Normal); Ketones Urine Negative (Negative); Leukocyte Esterase Urine Negative (Negative); Nitrate Urine Negative (Negative); Protein Urine Neg (Negative); Specific Gravity, Urine 1.005 (1.005-1.030); Urine Appearance Clear (CLEAR); Urine Color Yellow (Yellow); Urobilinogen Urine 1 mg/dL (Negative); pH Urine 5 (5-7)
[2021-10-12 17:58] LABS: Amphetamines Screen Urine Negative (Negative); Barbiturates Screen Urine Negative (Negative); Benzodiazepines Screen Urine Positive (Negative); Cocaine Screen Urine Negative (Negative); Opiate Screen Urine Negative (Negative); PCP Screen Urine Negative (Negative); THC Screen Urine Negative (Negative)
[2021-10-12 19:45] VITALS: BP 158/108; PULSE 80; RESP 18; TEMP 36.2; O2SAT 97
[2021-10-12 20:35] VITALS: BP 120/88; PULSE 79; RESP 17; TEMP 36.6; O2SAT 94
[2021-10-12] MEDS: nicotine 2 mg Gum BUCCAL (20:58)
[2021-10-13] MEDS: trazodone 50 mg Tablet PO (00:03)
[2021-10-13] MEDS: ondansetron 4 MG Tablet PO ×2 (00:05→09:07)
--- NOTE | 2021-10-13 01:20 | PC.NURSE ---
1679 Patient is at the nurses station with c/o of not being able to sleep. Trazadone 50mg po given for insomnia. This med was effective. She also took a drip of water and almost vomited. Zofran 4 mg po given for nausea. This was effective as the patient is sleeping at this time.
[2021-10-13] MEDS: blistex lip oint 7 gm Tube 1 APPLIC TOPICAL ×2 (02:34→19:00)
[2021-10-13 03:57] VITALS: PULSE 95; RESP 18; O2SAT 97
[2021-10-13] MEDS: albuterol 8 gm MDI 1 PUFF INHALATION (03:57)
--- NOTE | 2021-10-13 04:01 | PC.ADMIT ---
Admission Note:Patient presents here today with thoughts of suicide. Patient says he does have a difficult time since her boyfriend killed herself in her living room in January. Says she had a lot of financial difficulties having remodeled the house also. Also mother is moved in and that is created some problems. Patient has drank heavily over the years. Was sober for 2 years and started drinking again with her boyfriend and then drinking worse once he committed suicide. Patient denies illicit drug use yet that her boyfriend did use methamphetamines heavily. Patient says she is reach out for help she feels very depressed does not want to go on living and she has a plan to take pills to end her life. She has drank Southern comfort today and 12 pack of beer. Patient states that she is still grieving over her boyfriend who shot himself on her birthday. She is also the sole caregiver of her mother who is in her 70's who has moved in with her. She states she has been drinking a 12 pack of ICE beer along with many shots of Southern Comfort a day just to get by. She says she wakes up feeling really bad and has to start drinking again just to get over the pain. She states that her living conditions and relationships are probably the best as they have been in a while. She has a friend Virgilio who is a 75 year old male that is going to will her his house and land. The patient,Gifty Patterson,51 y/o, was given written information regarding hospital policies, unit procedures and contact persons. Patient's smoking status: . Vital Signs - 8 hr 10/12/21 20:35 Temperature 97.9 F Pulse Rate 79 Respiratory Rate 17 Blood Pressure 120/88 Pulse Oximetry 94
[2021-10-13 04:04] VITALS: PULSE 93; RESP 18; O2SAT 97
[2021-10-13 06:00] VITALS: BP 140/72; PULSE 88; RESP 18; TEMP 36.7; O2SAT 91
[2021-10-13 07:13] VITALS: BP 140/72; PULSE 88; RESP 18; TEMP 36.7; O2SAT 91
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
[2021-10-13] MEDS: thiamine 100 mg Tablet PO (09:06)
[2021-10-13] MEDS: multivitamin therapeutic Tablet 1 TAB PO (09:06)
[2021-10-13] MEDS: folic acid 1 mg Tablet PO (09:06)
[2021-10-13] MEDS: pantoprazole DR 40 mg Tablet PO (09:07)
[2021-10-13] MEDS: propranolol 20 mg Tablet PO ×2 (09:07→18:03)
[2021-10-13] MEDS: escitalopram 10 mg Tablet PO (10:37)
[2021-10-13] MEDS: LORazepam 2 mg Tablet PO ×2 (11:44→16:18)
[2021-10-13] MEDS: nicotine 2 mg Gum BUCCAL ×2 (13:00→19:00)
[2021-10-13 14:00] VITALS: BP 130/87; PULSE 86; RESP 20; TEMP 36.4; O2SAT 97
[2021-10-13] MEDS: trazodone 100 mg Tablet PO (19:00)
[2021-10-13 20:17] VITALS: BP 139/75; PULSE 77; RESP 18; O2SAT 95
[2021-10-14 06:00] VITALS: BP 164/99; PULSE 85; RESP 20; TEMP 36.2; O2SAT 93
[2021-10-14] MEDS: LORazepam 2 mg Tablet PO ×2 (07:55→15:20)
[2021-10-14] MEDS: ondansetron 4 MG Tablet PO ×2 (07:55→15:20)
[2021-10-14] MEDS: multivitamin therapeutic Tablet 1 TAB PO (09:05)
[2021-10-14] MEDS: folic acid 1 mg Tablet PO (09:05)
[2021-10-14] MEDS: propranolol 20 mg Tablet PO ×2 (09:05→19:27)
[2021-10-14] MEDS: pantoprazole DR 40 mg Tablet PO (09:06)
[2021-10-14] MEDS: escitalopram 10 mg Tablet PO (09:06)
[2021-10-14] MEDS: thiamine 100 mg Tablet PO (09:06)
[2021-10-14 09:40] VITALS: PULSE 92; RESP 16; O2SAT 88
--- NOTE | 2021-10-14 12:45 | P.NPUPN_ITS ---
Subjective NPU Subjective: Interval history: She said that she is doing fairly well. She has difficulty with her back because the chairs are bad for her back and it is about for her to be in bed all day. She is optimistic that she will be able to stay away from alcohol because she has not stopped and her family will be supportive. She thinks that the family has come more together now. She required 2 doses of Ativan yesterday and required 1 week's morning. She says she has a few doses of Ativan at home if she has difficulty after she goes home. He is going to stop drinking. Mental Status Exam MSE Comments: This is a 51-year-old obese female who appears approximately her stated age and is in no acute distress. She is in bed in hospital scrubs. Her grooming is fair. psychomotor activity is mildly decreased. Speech is at a regular rate and rhythm, normal volume, good articulation, not pressured. Alert, oriented X3 Attention and concentration appears to be intact. Memory is intact Mood is depressed but better Affect is mildly dysphoric. Thought process is logical and goal-directed. Thought content: Denies auditory and visual hallucinations. No delusions or paranoia are noted. No current suicidal ideation, and no homicidal ideation. Fund of knowledge is average. Insight and judgment appear to be fairly good. Impulse control is good. Cognition: Patient Appearance: Appropriate Level of Consciousness: Awake, Alert, Appropriate and Follows Commands Patient Cognition Impaired: No Ability to Follow Directions: Excellent Patient Orientation (long list): Person, Place, Name, Age, Birthday and Month Comprehension Ability: No Impairment Hallucination Type: None Delusion Description: Not Present Thought Process: Appropriate Affect: Affect Description: Appropriate and Calm Depressive Symptoms: Back Pain, Changes in Appetite, Crying Spells, Difficulty Concentrating, Difficulty Sleeping, Difficulty Making Decisions, Feelings of Guilt, Feelings of Worthlessness, Hopelessness, Insomnia, Increased Anxiety, Increased Fatigue, Increased Irritability, Isolating Oneself From Friends and Family, Loss of Energy, Loss of Interest in Activities, Low Self Esteem, Muscle Pain, Muscle Tension, Reduced Sex Drive, Significant Weight Gain, Unexplained Headaches, Unexplained Stomach Pain and Unhappiness Behavior: Patient Behavior: Appropriate and Cooperative Speech Pattern: Appropriate and Clear Vitals/I&O/Wt Last Vital Signs Temp 97.2 F L 10/14/21 06:00 Pulse 92 10/14/21 09:40 Resp 16 10/14/21 09:40 BP 164/99 10/14/21 06:00 Pulse Ox 88 L 10/14/21 09:40 Weight last 48 hrs Weight 99.337 kg Data NPU : 10/12/21 17:02 10/12/21 17:02 A&P Assessment and plan (1) Suicidal ideation: Status: Acute (2) Alcohol dependence with withdrawal: Status: Acute (3) Depressive disorder: Status: Acute Plan This is a 51-year-old female who comes in to get treatment for her depression and alcohol dependence. Plan: 1.? We will start on the CIWA protocol and Lexapro 10 mg every morning and trazodone 100 mg at bedtime 2.? Continue every 15 minute checks for safety. 3.? Encourage individual, group and milieu therapies. 4.? Encourage sober living treatment after discharge at the highest level of care to which she is willing to commit. 5.? We will monitor for safety for herself in the community prior to discharge. Involuntary Hold Information 96 Hour Hold: 96 Hour Involuntary Admission: No Attestations NPU 2 Medical Necessity Statement*: Inpatient hospitalization is medically necessary and the clinically appropriate intervention at this time. We will initiate medi cations and make changes as indicated. Coding Level of Care Code Acute Cigarette Paper Tester for Davina Grace Diagnoses Suicidal ideation R45.851 Alcohol dependence with withdrawal F10.239 Depressive disorder F32.9
[2021-10-14 14:00] VITALS: BP 164/99; PULSE 92; RESP 16; TEMP 36.2; O2SAT 88
[2021-10-14] MEDS: nicotine 2 mg Gum BUCCAL (14:31)
[2021-10-14] MEDS: trazodone 50 mg Tablet PO (20:42)
[2021-10-14 20:53] VITALS: BP 144/89; PULSE 69; RESP 17; TEMP 36.4; O2SAT 96
[2021-10-15 06:00] VITALS: BP 165/109; PULSE 93; RESP 20; TEMP 37; O2SAT 92
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
[2021-10-15] MEDS: ondansetron 4 MG Tablet PO (07:57)
[2021-10-15] MEDS: nicotine 2 mg Gum BUCCAL (07:58)
[2021-10-15] MEDS: folic acid 1 mg Tablet PO (07:58)
[2021-10-15] MEDS: multivitamin therapeutic Tablet 1 TAB PO (07:59)
[2021-10-15] MEDS: pantoprazole DR 40 mg Tablet PO (07:59)
[2021-10-15] MEDS: thiamine 100 mg Tablet PO (07:59)
[2021-10-15] MEDS: escitalopram 10 mg Tablet PO (07:59)
[2021-10-15] MEDS: gabapentin 300 mg Capsule PO (07:59)
[2021-10-15] MEDS: propranolol 20 mg Tablet PO (07:59)
[2021-10-15 08:01] VITALS: BP 165/109; PULSE 93; RESP 20; TEMP 37; O2SAT 92
== END 2021-10-15 10:26 | disposition home or self-care (01) | DRG 897 ==
LOC: ER 18:51 → NP 19:21
PROVIDERS: Nurse Practitioner Family; Admitting Provider Psychiatry & Neurology Psychiatry; Emergency Provider Physician Assistant; Visit Provider Psychiatry & Neurology Psychiatry
DX: F10.239 Alcohol dependence with withdrawal, unspecified (principal); R45.851 Suicidal ideations; F32.9 Major depressive disorder, single episode, unspecified; Y90.7 Blood alcohol level of 200-239 mg/100 ml; F43.21 Adjustment disorder with depressed mood
CPT/HCPCS: 80053; 80306; 80307; 81003; 85025; 94640; 97165; 99285; J3535; Q0162

== ENCOUNTER → 2021-12-31 15:25 | Outpatient (BNVA) | payer OTHER, SELFPAY | PROVIDERS: Visit Provider Family Medicine | DX: I10 Essential (primary) hypertension (principal); E53.8 Deficiency of other specified B group vitamins; M54.50 Low back pain, unspecified; G89.29 Other chronic pain | CPT/HCPCS: 72100; 80053; 82607 ==

== ENCOUNTER 2022-02-25 06:00 | Outpatient (RCR) | payer OTHER, SELFPAY | END 2022-03-19 23:59 | disposition home or self-care (01) | LOC: MPT 06:00 | PROVIDERS: Referring Provider Family Medicine; Visit Provider Family Medicine | DX: G89.29 Other chronic pain (principal); M54.50 Low back pain, unspecified; M54.2 Cervicalgia | CPT/HCPCS: 97110; 97162; 97530 ==

== ENCOUNTER 2022-03-20 06:00 | Outpatient (RCR) | payer OTHER, SELFPAY | END 2022-04-19 23:59 | disposition home or self-care (01) | LOC: MPT 06:00 | PROVIDERS: Referring Provider Family Medicine; Visit Provider Family Medicine | DX: G89.29 Other chronic pain (principal); M54.50 Low back pain, unspecified; M54.2 Cervicalgia | CPT/HCPCS: 97110; G0283 ==

== ENCOUNTER → 2022-04-01 15:34 | Outpatient (BNVA) | payer OTHER, SELFPAY | PROVIDERS: Visit Provider Family Medicine | DX: K29.00 Acute gastritis without bleeding (principal); I10 Essential (primary) hypertension; F41.9 Anxiety disorder, unspecified; M54.9 Dorsalgia, unspecified; G89.29 Other chronic pain; F10.982 Alcohol use, unspecified with alcohol-induced sleep disorder; F32.9 Major depressive disorder, single episode, unspecified; J44.1 Chronic obstructive pulmonary disease with (acute) exacerbation; J41.0 Simple chronic bronchitis; Z72.0 Tobacco use; R41.89 Other symptoms and signs involving cognitive functions and awareness; Z68.32 Body mass index [BMI] 32.0-32.9, adult; F33.2 Major depressive disorder, recurrent severe without psychotic features; Z12.31 Encounter for screening mammogram for malignant neoplasm of breast; R00.2 Palpitations; I83.93 Asymptomatic varicose veins of bilateral lower extremities; Z13.220 Encounter for screening for lipoid disorders; Z13.6 Encounter for screening for cardiovascular disorders | CPT/HCPCS: 80053; 80061 ==

== ENCOUNTER 2022-04-20 06:00 | Outpatient (RCR) | payer OTHER, MEDICAID, SELFPAY | END 2022-05-20 23:59 | disposition home or self-care (01) | LOC: MPT 06:00 | PROVIDERS: Referring Provider Family Medicine; Visit Provider Family Medicine | DX: M54.50 Low back pain, unspecified (principal); M54.2 Cervicalgia; G89.29 Other chronic pain | CPT/HCPCS: 97110; 97530; G0283 ==

== ENCOUNTER 2022-05-21 06:00 | Outpatient (RCR) | payer OTHER, MEDICAID, SELFPAY | END 2022-06-10 23:59 | disposition home or self-care (01) | LOC: MPT 06:00 | PROVIDERS: Visit Provider Family Medicine | DX: M54.50 Low back pain, unspecified (principal) | CPT/HCPCS: 97110 ==

== ENCOUNTER → 2022-10-12 13:15 | Outpatient (BNVA) | payer MEDICAID, SELFPAY | PROVIDERS: PCP Family Medicine; Visit Provider Family Medicine | DX: I10 Essential (primary) hypertension (principal); R53.83 Other fatigue; M54.2 Cervicalgia | CPT/HCPCS: 72040; 80053; 82607; 82652; 84443; 85025 ==

== ENCOUNTER → 2022-11-10 14:40 | Outpatient (BNVA) | payer MEDICAID, SELFPAY | PROVIDERS: PCP Family Medicine; Visit Provider Family Medicine | DX: Z01.419 Encounter for gynecological examination (general) (routine) without abnormal findings (principal); B37.31 Acute candidiasis of vulva and vagina; F10.982 Alcohol use, unspecified with alcohol-induced sleep disorder; M54.2 Cervicalgia; Z12.4 Encounter for screening for malignant neoplasm of cervix; I10 Essential (primary) hypertension; M54.50 Low back pain, unspecified; G89.29 Other chronic pain | CPT/HCPCS: 87624 ==

== ENCOUNTER → 2024-01-31 11:41 | Outpatient (BNVA) | payer MEDICAID, SELFPAY | PROVIDERS: PCP Family Medicine; Visit Provider Family Medicine | DX: K21.9 Gastro-esophageal reflux disease without esophagitis (principal); M54.2 Cervicalgia; G89.29 Other chronic pain | CPT/HCPCS: 72040 ==

== ENCOUNTER → 2024-02-10 11:28 | Outpatient (BNVA) | payer MEDICAID, SELFPAY | PROVIDERS: PCP Family Medicine; Visit Provider Family Medicine | DX: M47.812 Spondylosis without myelopathy or radiculopathy, cervical region (principal); M19.90 Unspecified osteoarthritis, unspecified site; G25.81 Restless legs syndrome; I10 Essential (primary) hypertension; F10.21 Alcohol dependence, in remission; Z13.220 Encounter for screening for lipoid disorders; Z13.6 Encounter for screening for cardiovascular disorders; E87.6 Hypokalemia; M54.2 Cervicalgia; G89.29 Other chronic pain | CPT/HCPCS: 80053; 80061; 83735 ==

== ENCOUNTER 2024-06-22 11:18 | Outpatient (CLI) | payer MEDICAID, SELFPAY ==
--- NOTE | 2024-06-22 11:20 | MM_ITS ---
WS: [id number] BILATERAL SCREENING DIGITAL TOMOSYNTHESIS MAMMOGRAM WITH CAD HISTORY: Z12.39 - Encounter for other screening for malignant neop... COMPARISON: 08/14/2022 Bilateral CC and MLO views with tomosynthesis and synthetic mammography submitted. Computer aided det ection analyzed. Breast composition: There are scattered areas of fibroglandular density. No suspicious masses, microc alcifications or architectural distortion. MM/MM scr BI tomosynthesis [id number] IMPRESSION: BI-RADS: 2 - Benign. FOLLOW UP: 1 Year Follow-up
== END 2024-06-22 11:19 | disposition home or self-care (01) ==
LOC: MOBLMAM 11:26
PROVIDERS: PCP Family Medicine; Visit Provider Family Medicine
DX: Z12.39 Encounter for other screening for malignant neoplasm of breast (principal); R92.323 Mammographic fibroglandular density, bilateral breasts
CPT/HCPCS: 77063; 77067

== ENCOUNTER 2024-10-31 13:11 | Outpatient (RCR) | payer MEDICAID, SELFPAY ==
[2024-08-11 14:29] VITALS: BP 134/86; BMI 25.3
== END 2024-11-17 23:59 | disposition home or self-care (01) ==
LOC: MPT 13:11
PROVIDERS: PCP Family Medicine; Visit Provider Family Medicine
DX: M54.2 Cervicalgia (principal); G89.29 Other chronic pain
CPT/HCPCS: 97162

== ENCOUNTER → 2024-10-31 15:45 | Outpatient (BNVA) | payer MEDICAID, SELFPAY ==
[2024-08-11 14:29] VITALS: BP 134/86; BMI 25.3
== END ==
PROVIDERS: PCP Family Medicine; Visit Provider Nurse Practitioner
DX: R30.0 Dysuria (principal)
CPT/HCPCS: 81000; 87086

== ENCOUNTER → 2025-01-02 13:58 | Outpatient (BNVA) | payer MEDICAID, SELFPAY ==
[2024-08-11 14:29] VITALS: BP 134/86; BMI 25.3
== END ==
PROVIDERS: PCP Family Medicine; Visit Provider Family Medicine
DX: N39.0 Urinary tract infection, site not specified (principal); I10 Essential (primary) hypertension; R35.0 Frequency of micturition; Z13.220 Encounter for screening for lipoid disorders; Z13.6 Encounter for screening for cardiovascular disorders; M54.50 Low back pain, unspecified; G89.29 Other chronic pain
CPT/HCPCS: 80053; 80061; 81000; 87086

== ENCOUNTER → 2025-02-07 13:36 | Outpatient (BNVA) | payer MEDICAID, SELFPAY ==
[2025-01-09 17:22] VITALS: BP 131/85; BMI 34.4
== END ==
PROVIDERS: PCP Family Medicine; Visit Provider Family Medicine
DX: F10.21 Alcohol dependence, in remission (principal); I10 Essential (primary) hypertension
CPT/HCPCS: 85025

== ENCOUNTER → 2025-02-26 11:27 | Outpatient (BNVA) | payer MEDICAID, SELFPAY ==
[2025-01-09 17:22] VITALS: BP 131/85; BMI 34.4
== END ==
PROVIDERS: PCP Family Medicine; Referring Provider Family Medicine; Visit Provider Family Medicine
DX: F10.21 Alcohol dependence, in remission (principal); I10 Essential (primary) hypertension; F33.2 Major depressive disorder, recurrent severe without psychotic features
CPT/HCPCS: 80053; 85025; 86705; 86706; 86709; 86803; 87340

== ENCOUNTER → 2025-02-27 22:19 | Outpatient (BNVA) | payer MEDICAID, SELFPAY ==
[2025-01-09 17:22] VITALS: BP 131/85; BMI 34.4
== END ==
PROVIDERS: PCP Family Medicine; Referring Provider Family Medicine; Visit Provider Family Medicine
DX: F10.21 Alcohol dependence, in remission (principal); I10 Essential (primary) hypertension; F33.2 Major depressive disorder, recurrent severe without psychotic features
CPT/HCPCS: 87522

== ENCOUNTER 2025-03-30 10:18 | Outpatient (CLI) | payer MEDICAID, SELFPAY ==
[2025-01-09 17:22] VITALS: BP 131/85; BMI 34.4
--- NOTE | 2025-03-30 10:30 | US_ITS ---
WS: [id number] Exam: US abdomen complete* [id number] Date/Time of Exam: 03/30/2025 10:31 AM Reason For Exam: F10.21 - Alcohol dependence, in remission Comparison 12/23/2011. The gallbladder surgically absent. The liver, spleen and pancreas appear normal. The common bile duct measures 4 mm in greatest diameter. The abdominal aorta is normal in caliber. The IVC is patent. The kidneys are of normal size, shape and location. No solid or cystic renal mass. No renal obstruction. The RIGHT kidney measures 9 x 5.2 x 4.7 cm. The LEFT kidney measures 8.5 x 3.8 x 4.3 cm. Hepatopetal flow in the portal vein. No mass or free fluid in the abdomen. US/US abdomen complete* [id number] IMPRESSION: 1. Status post cholecystectomy, the exam is otherwise unremarkable.
== END 2025-03-30 10:19 | disposition home or self-care (01) ==
LOC: RAD 10:19
PROVIDERS: PCP Family Medicine; Visit Provider Family Medicine
DX: F10.21 Alcohol dependence, in remission (principal); R74.8 Abnormal levels of other serum enzymes; Z90.49 Acquired absence of other specified parts of digestive tract
CPT/HCPCS: 76700

== ENCOUNTER → 2025-05-29 15:34 | Outpatient (BNVA) | payer OTHER, SELFPAY ==
[2025-01-09 17:22] VITALS: BP 131/85; BMI 34.4
== END ==
PROVIDERS: PCP Family Medicine; Visit Provider Family Medicine
DX: E87.6 Hypokalemia (principal); I10 Essential (primary) hypertension
CPT/HCPCS: 80048; 83735

== ENCOUNTER → 2025-08-27 14:58 | Outpatient (BNVA) | payer MEDICAID, SELFPAY ==
[2025-01-09 17:22] VITALS: BP 131/85; BMI 34.4
== END ==
PROVIDERS: PCP Family Medicine; Visit Provider Family Medicine
DX: I10 Essential (primary) hypertension (principal); R30.0 Dysuria
CPT/HCPCS: 80048; 81000; 83735